=== PATIENT | male | born 1965 | race Caucasian/White ===

== ENCOUNTER 2017-10-14 12:18 | Emergency (ER) | payer BC ==
[~2017-10-14] VITALS: Ht 185.4 cm; Wt 78.7 kg
[~2017-10-14 12:18] MED LIST: MAXALT10 MG PO; NEXIUM40 MG PO; RAPAFLO8 MG PO
[2017-10-14] MEDS ORDERED: AUGMENTIN875 MG PO (14:48)
[2017-10-14 16:51] VITALS: BP 122/78
== END 2017-10-14 16:53 | disposition home or self-care (01) ==
LOC: EME 12:18
DX: S90.511A Abrasion, right ankle, initial encounter (principal); W55.01XA Bitten by cat, initial encounter
CPT/HCPCS: 99281; 99283